=== PATIENT | female | born 1950 | race African-American/Black ===

== ENCOUNTER 2022-10-04 01:00 | Emergency (ER) | payer MEDICARE ==
[~2022-10-04] VITALS: Ht 172.7 cm; Wt 78.0 kg
[2022-10-04 01:12] VITALS: BP 165/66; PULSE 64; RESP 16; O2SAT 99
[2022-10-04] MEDS ORDERED: ACETAMINOPHEN 325MG TABLET PO ONE (01:30)
[2022-10-04 01:46] VITALS: TEMP 97.9
[2022-10-04] MEDS ORDERED: ACET-2708 MT (04:59)
== END 2022-10-04 05:20 | disposition home or self-care (01) ==
LOC: ER 01:05
DX: M79.601 Pain in right arm (principal); I10 Essential (primary) hypertension; W18.39XA Other fall on same level, initial encounter; Y93.89 Activity, other specified; Y92.89 Other specified places as the place of occurrence of the external cause; Y99.8 Other external cause status
CPT/HCPCS: 73060; 73560; 99284